=== PATIENT | male | born 2000 | race Caucasian/White ===

== ENCOUNTER → 2019-04-15 | Outpatient (REF) | payer OTHER, SELFPAY ==
[2019-04-15 21:12] LABS: CHLAMYDIA DNA AMPLIFICATION POSITIVE (NEGATIVE); GC DNA AMPLIFICATION NEGATIVE (NEGATIVE)
== END ==
LOC: M SFHCLERA 17:06
PROVIDERS: ATTEND Nurse Practitioner Family
DX: R30.9 Painful micturition, unspecified (principal)